=== PATIENT | male | born 1990 | race Caucasian/White ===

== ENCOUNTER 2017-02-06 00:37 | Emergency (ER) | payer BC ==
[2017-02-06 01:24] VITALS: BP 119/66
[2017-02-06] MEDS ORDERED: LORazepam 1 MG Tab PO ONE (01:27)
--- NOTE | 2017-02-06 01:34 | EDM.PDOC ---
ED HPI GENERAL MEDICAL PROBLEM - General Chief Complaint: Drug or Alcohol Abuse Stated Complaint: DRUG WITHDRAWALS Time Seen by Provider: 02/06/17 01:34 Source of Information: Reports: Patient - History of Present Illness INITIAL COMMENTS - FREE TEXT/NARRATIVE: HISTORY AND PHYSICAL: History of present illness: [] Patient reports withdrawing from heroin he does use or heroin daily smoking he has not used in 48 hours Is been through treatment in [place] and was on Suboxone for a week however is doing well and discontinued that thinking he would do well without it Currently complaining of runny nose muscle spasms restless legs No fever nausea vomiting chills sweats no chest pain shortness breath headache or palpitation denies urinary symptoms Review of systems: As per history of present illness and below otherwise all systems reviewed and negative. Past medical history: As per history of present illness and as reviewed below otherwise noncontributory. Surgical history: As per history of present illness and as reviewed below otherwise noncontributory. Social history: No reported history of drug or alcohol abuse. Family history: As per history of present illness and as reviewed below otherwise noncontributory. Physical exam: HEENT: Atraumatic, normocephalic, pupils reactive, negative for conjunctival pallor or scleral icterus, mucous membranes moist, throat clear, neck supple, nontender, trachea midline. Lungs: Clear to auscultation, breath sounds equal bilaterally, chest nontender. Heart: S1S2, regular, negative for clicks, rubs, or JVD. Abdomen: Soft, nondistended, nontender. Negative for masses or hepatosplenomegaly. Negative for costovertebral tenderness. Pelvis: Stable nontender. Genitourinary: Deferred. Rectal: Deferred. Extremities: Atraumatic, negative for cords or calf pain. Neurovascular unremarkable. Neuro: Awake, alert, oriented. Cranial nerves II through XII unremarkable. Cerebellum unremarkable. Motor and sensory unremarkable throughout. Exam nonfocal. 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 legs Pain Score (Numeric/FACES): 10 - Related Data Allergies Allergy/AdvReac Type Severity Reaction Status Date / Time No Known Allergies Allergy Verified 02/06/17 01:17 Home Meds: Home Meds . [No Known Home Meds] 02/06/17 [History] Past Medical History - Past Health History Medical/Surgical History: Denies Medical/Surgical History Social & Family History - Family History Family Medical History: Noncontributory - Tobacco Use Smoking Status *Q: Current Every Day Smoker Years of Tobacco use: 5 Packs/Tins Daily: 1 - Caffeine Use Caffeine Use: Reports: None - Recreational Drug Use Recreational Drug Use: Yes Drug Use in Last 12 Months: Yes Recreational Drug Type: Reports: Heroin Recreational Drug Use Frequency: Weekly ED ROS GENERAL - Review of Systems Review Of Systems: ROS reveals no pertinent complaints other than HPI. ED EXAM, GENERAL - Physical Exam Exam: See Below Course - Vital Signs Last Recorded V/S: Last Vital Signs Temp 36.6 C 02/06/17 01:18 Pulse 79 02/06/17 01:18 Resp 16 02/06/17 01:18 BP 119/66 02/06/17 01:18 Pulse Ox 98 02/06/17 01:18 - Orders/Labs/Meds Meds: Medications Discontinued Medications Generic Name Dose Route Start Last Admin Trade Name Freq PRN Reason Stop Dose Admin Lorazepam 1 mg 02/06/17 01:27 Ativan PO 02/06/17 01:28 ONETIME ONE Departure - Departure Time of Disposition: 01:36 Disposition: Home, Self-Care 01 Condition: fair Clinical Impression: Drug dependence, Opioid withdrawal - Discharge Information Forms: ED Department Discharge Additional Instructions: [place] [facility] in [facility] may be able to help this I provided the inpatient and outpatient treatment as well as have a Suboxone clinic [facility] also has a clinic similar to above phone number [phone] Return if symptoms persist or worsen Followup with primary care in 2 weeks sooner as needed [facility] - Primary Care [address] [place] [id number] The following information is given to patients seen in the emergency department who are being discharged to home. This information is to outline your options for follow-up care. We provide all patients seen in our emergency department with a follow-up referral. The need for follow-up, as well as the timing and circumstances, are variable depending upon the specifics of your emergency department visit. If you don't have a primary care physician on staff, we will provide you with a referral. We always advise you to contact your personal physician following an emergency department visit to inform them of the circumstance of the visit and for follow-up with them and/or the need for any referrals to a consulting specialist. The emergency department will also refer you to a specialist when appropriate. This referral assures that you have the opportunity for follow-up care with a specialist. All of these measure are taken in an effort to provide you with optimal care, which includes your follow-up. Under all circumstances we always encourage you to contact your private physician who remains a resource for coordinating your care. When calling for follow-up care, please make the office aware that this follow-up is from your recent emergency room visit. If for any reason you are refused follow-up, please contact the [facility] emergency department at and asked to speak to the emergency department charge nurse.
== END 2017-02-06 01:54 | disposition home or self-care (01) ==
LOC: MW.ED 00:37
DX: F11.23 Opioid dependence with withdrawal (principal); F17.210 Nicotine dependence, cigarettes, uncomplicated
CPT/HCPCS: 99283; A9270

== ENCOUNTER 2017-05-21 23:41 | Observation (INO) | payer BC ==
[2017-05-21] MEDS ORDERED: Ondansetron 4 MG/2 ML SDV IVPUSH ONE (23:50)
[2017-05-21] MEDS ORDERED: Ketorolac 30 MG/ML SDV IVPUSH ONE (23:50)
[2017-05-21] MEDS ORDERED: Sodium Chloride 0.9% 1,000 ML IV ONE (23:50)
--- NOTE | 2017-05-22 00:06 | EDM.PDOC ---
ED HPI GENERAL MEDICAL PROBLEM - General Chief Complaint: Flank Pain Stated Complaint: ABDOMNIAL PAIN Time Seen by Provider: 05/22/17 00:04 - History of Present Illness INITIAL COMMENTS - FREE TEXT/NARRATIVE: HISTORY AND PHYSICAL: History of present illness: Patient 27-year-old white male sensory concern of right flank pain is been over last several days worse tonight associated nausea denies vomiting denies fever chills denies trauma denies history urolithiasis or other concern he's had no prior surgeries Review of systems: As per history of present illness and below otherwise all systems reviewed and negative. Past medical history: As per history of present illness and as reviewed below otherwise noncontributory. Surgical history: As per history of present illness and as reviewed below otherwise noncontributory. Social history: No reported history of drug or alcohol abuse. Family history: As per history of present illness and as reviewed below otherwise noncontributory. Physical exam: HEENT: Atraumatic, normocephalic, pupils reactive, negative for conjunctival pallor or scleral icterus, mucous membranes moist, throat clear, neck supple, nontender, trachea midline. Lungs: Clear to auscultation, breath sounds equal bilaterally, chest nontender. Heart: S1S2, regular, negative for clicks, rubs, or JVD. Abdomen: Soft, nondistended, nontender. Negative for masses or hepatosplenomegaly. Right-sided costovertebral tenderness. Pelvis: Stable nontender. Genitourinary: Deferred. Rectal: Deferred. Extremities: Atraumatic, negative for cords or calf pain. Neurovascular unremarkable. Neuro: Awake, alert, oriented. Cranial nerves II through XII unremarkable. Cerebellum unremarkable. Motor and sensory unremarkable throughout. Exam nonfocal. Diagnostics: CBC CMP UA CT abdomen and pelvis Therapeutics: Normal saline 1 L bolus Toradol 30 mg IV Zofran 4 mg IV Impression: #1 acute right flank pain Definitive disposition and diagnosis as appropriate pending reevaluation and review of above. Right Flank Pain Score (Numeric/FACES): 10 - Related Data Allergies Allergy/AdvReac Type Severity Reaction Status Date / Time No Known Allergies Allergy Verified 02/06/17 01:17 Home Meds: Home Meds . [No Known Home Meds] 02/06/17 [History] Past Medical History - Past Health History Medical/Surgical History: Denies Medical/Surgical History Psychiatric History: Reports: Addiction - Infectious Disease History Infectious Disease History: Reports: Chicken Pox Social & Family History - Family History Family Medical History: Noncontributory - Tobacco Use Smoking Status *Q: Current Every Day Smoker Years of Tobacco use: 10 Packs/Tins Daily: 1 - Caffeine Use Caffeine Use: Reports: Soda Caffeine Use Comment: 4-5 daily - Recreational Drug Use Recreational Drug Use: Yes Drug Use in Last 12 Months: Yes Recreational Drug Type: Reports: Amphetamines (Speed), Heroin, Marijuana/Hashish Recreational Drug Use Frequency: Weekly ED ROS GENERAL - Review of Systems Review Of Systems: ROS reveals no pertinent complaints other than HPI. ED EXAM, GENERAL - Physical Exam Exam: See Below (See dictation) Course - Vital Signs Last Recorded V/S: Last Vital Signs Temp 36.4 C 05/21/17 23:43 Pulse 91 05/21/17 23:43 Resp 18 05/21/17 23:43 BP 137/70 05/21/17 23:43 Pulse Ox 96 05/21/17 23:43 - Orders/Labs/Meds Orders: Active Orders 24 hr Category Date Time Status Abdomen Pelvis wo Cont [CT] Stat Exams 05/21/17 23:50 Taken CULTURE BLOOD [BC] Stat Lab 05/22/17 01:38 Ordered CULTURE BLOOD [BC] Stat Lab 05/22/17 01:38 Ordered CULTURE URINE [RM] Stat Lab 05/22/17 01:39 Ordered Blood Culture x2 Reflex Set [OM.PC] Stat Oth 05/22/17 01:38 Ordered Labs: Laboratory Tests 05/22/17 05/22/17 05/22/17 Range/Units 00:04 00:04 00:43 WBC 15.64 H (4.0-11.0) K/uL RBC 4.79 (4.50-5.90) M/uL Hgb 14.1 (13.0-17.0) g/dL Hct 41.9 (38.0-50.0) % MCV 87.5 (80.0-98.0) fL MCH 29.4 (27.0-32.0) pg MCHC 33.7 (31.0-37.0) g/dL RDW Std Deviation 41.9 (28.0-62.0) fl RDW Coeff of Manuel 13 (11.0-15.0) % Plt Count 270 (150-400) K/uL MPV 9.60 (7.40-12.00) fL Neut % (Auto) 78.0 (48.0-80.0) % Lymph % (Auto) 11.0 L (16.0-40.0) % [place] % (Auto) 10.2 (0.0-15.0) % Eos % (Auto) 0.6 (0.0-7.0) % Baso % (Auto) 0.2 (0.0-1.5) % Neut # (Auto) 12.2 H (1.4-5.7) K/uL Lymph # (Auto) 1.7 (0.6-2.4) K/uL [place] # (Auto) 1.6 H (0.0-0.8) K/uL Eos # (Auto) 0.1 (0.0-0.7) K/uL Baso # (Auto) 0.0 (0.0-0.1) K/uL Nucleated RBC % 0.0 /100WBC Nucleated RBCs # 0 K/uL Sodium 140 (136-146) mmol/L Potassium 3.7 (3.5-5.1) mmol/L Chloride 107 (98-110) mmol/L Carbon Dioxide 23 (21-31) mmol/L BUN 22 (6.0-23.0) mg/dL Creatinine 3.0 H (0.6-1.5) mg/dL Est Cr Clr Drug Dosing 38.87 mL/min Estimated GFR (MDRD) 25.6 ml/min Glucose 120 H (60-110) mg/dL Calcium 9.0 (8.8-10.8) mg/dL Total Bilirubin 0.9 (0.1-1.5) mg/dL AST 20 (5-40) IU/L ALT 11 (8-54) IU/L Alkaline Phosphatase 58 (40-150) Total Protein 6.4 (6.0-8.0) g/dL Albumin 3.8 (3.5-5.0) g/dL Globulin 2.6 (2.0-3.5) g/dL Albumin/Globulin Ratio 1.5 (1.3-2.8) Urine Color YELLOW Urine Appearance CLEAR Urine pH 5.0 (5.0-8.0) Ur Specific [place] <= 1.005 (1.001-1.035) Urine Protein NEGATIVE (NEGATIVE) mg/dL Urine Glucose (UA) NEGATIVE (NEGATIVE) mg/dL Urine Ketones NEGATIVE (NEGATIVE) mg/dL Urine Occult Blood NEGATIVE (NEGATIVE) Urine Nitrite NEGATIVE (NEGATIVE) Urine Bilirubin NEGATIVE (NEGATIVE) Urine Urobilinogen 0.2 (<2.0) EU/dL Ur Leukocyte Esterase TRACE (NEGATIVE) Urine RBC 0-1 (0-2/HPF) Urine WBC 0-2 (0-5/HPF) Ur Epithelial Cells RARE (NONE-FEW) Urine Bacteria RARE (NEGATIVE) Meds: Medications Discontinued Medications Generic Name Dose Route Start Last Admin Trade Name Freq PRN Reason Stop Dose Admin Sodium Chloride 1,000 mls @ 999 mls/hr 05/21/17 23:50 05/22/17 00:08 Normal Saline IV 05/22/17 00:50 999 mls/hr .Bolus ONE Administration Ketorolac Tromethamine 30 mg 05/21/17 23:50 05/22/17 00:11 Toradol IVPUSH 05/21/17 23:51 30 mg ONETIME ONE Administration Ondansetron HCl 4 mg 05/21/17 23:50 05/22/17 00:11 Zofran IVPUSH 05/21/17 23:51 4 mg ONETIME ONE Administration Departure - Departure Time of Disposition: 01:41 Disposition: Refer to Observation Condition: Good Clinical Impression: Flank pain, Leukocytosis, Renal failure - Discharge Information Referrals: PCP,None [Primary Care Provider] - Forms: ED Department Discharge - My Orders Last 24 Hours: My Active Orders 05/21/17 23:50 Abdomen Pelvis wo Cont [CT] Stat 05/22/17 01:38 CULTURE BLOOD [BC] Stat CULTURE BLOOD [BC] Stat Blood Culture x2 Reflex Set [OM.PC] Stat 05/22/17 01:39 CULTURE URINE [RM] Stat - Assessment/Plan Last 24 Hours: My Active Orders 05/21/17 23:50 Abdomen Pelvis wo Cont [CT] Stat 05/22/17 01:38 CULTURE BLOOD [BC] Stat CULTURE BLOOD [BC] Stat Blood Culture x2 Reflex Set [OM.PC] Stat 05/22/17 01:39 CULTURE URINE [RM] Stat
[2017-05-22] MEDS ORDERED: Sodium Chloride 0.9% 1,000 ML IV ONE (01:52)
[2017-05-22] MEDS ORDERED: Sodium Chloride 0.9% 1,000 ML IV SCH ×2 (02:45→10:00)
[2017-05-22] MEDS ORDERED: Acetaminophen 325 MG Tab PO PRN (02:46)
[2017-05-22] MEDS ORDERED: Morphine 2 MG/ML Syringe IVPUSH PRN (02:46)
[2017-05-22] MEDS: cefTRIAXone 1 GM in Premix Bag 1 BAG IV SCH (03:02)
[2017-05-22] MEDS: oxyCODONE 5 MG Tab PO PRN ×4 (03:17→21:21)
--- NOTE | 2017-05-22 09:21 | PCM.HP ---
H&P History of Present Illness - General Date of Service: 05/22/17 Admit Problem/Dx: Admission Diagnosis/Problem Admission Diagnosis/Problem Flank pain Source of Information: Patient History Limitations: Reports: No Limitations - History of Present Illness Initial Comments - Free Text/Narative: The patient is a 27-year-old gentleman who is presented to the emergency room as he had right flank pain which woke him up suddenly in the middle the night. The patient has been healthy otherwise and he has no history of medical problems and he does not take any medications chronically. Patient reports that the pain is in his right kidney area and seemed to radiate around to the front of his right-sided abdomen. The patient has denied any nausea or vomiting. He's had no dysuria, frequency or hesitancy. No difficulty in initiating or maintaining urination. The patient says that the pain hurts when he tries to move or bends over. A CT scan obtained in the emergency department showed that the patient had stranding around his right kidney without otherwise significant abnormalities. UA was also negative. The patient had an elevation of his white blood cell count of 15,000 and he also had a BUN/creatinine of 22 and 3.0. The patient has been in his usual state of health. He has no other complaints today. Onset of Symptoms: Reports: Sudden Duration of Symptoms: Reports: Hour(s):, Improving Location: Reports: Back Quality: Reports: Stabbing, Throbbing Severity: Moderate Improves with: Reports: Rest Worsens with: Reports: Movement Associated Symptoms: Reports: No Other Symptoms Right Flank Pain Score (Numeric/FACES): 10 - Related Data Allergies/Adverse Reactions: Allergies Allergy/AdvReac Type Severity Reaction Status Date / Time No Known Allergies Allergy Verified 02/06/17 01:17 Home Medications: Home Meds . [No Known Home Meds] 02/06/17 [History] Past Medical History - Past Health History Medical/Surgical History: Denies Medical/Surgical History HEENT History: Reports: None Cardiovascular History: Reports: None Respiratory History: Reports: None Gastrointestinal History: Reports: None Genitourinary History: Reports: None Musculoskeletal History: Reports: None Neurological History: Reports: None Psychiatric History: Reports: Addiction Endocrine/Metabolic History: Reports: None Hematologic History: Reports: None Immunologic History: Reports: None - Infectious Disease History Infectious Disease History: Reports: Chicken Pox Social & Family History - Family History Family Medical History: Noncontributory HEENT: Reports: None Cardiac: Reports: None Respiratory: Reports: None GI: Reports: None : Reports: None OBGYN: Reports: None Musculoskeletal: Reports: None Neurological: Reports: None Psychiatric: Reports: None Endocrine/Metabolic: Reports: None - Tobacco Use Smoking Status *Q: Current Every Day Smoker Years of Tobacco use: 10 Packs/Tins Daily: 1 Second Hand Smoke Exposure: Yes - Caffeine Use Caffeine Use: Reports: Coffee, Energy Drinks, Soda Caffeine Use Comment: 4-5 daily - Alcohol Use Alcohol Use History: Yes - Recreational Drug Use Recreational Drug Use: No Drug Use in Last 12 Months: Yes Recreational Drug Type: Reports: Amphetamines (Speed), Heroin, Marijuana/Hashish Recreational Drug Use Frequency: Weekly H&P Review of Systems - Review of Systems: Review Of Systems: See Below General: Reports: No Symptoms HEENT: Reports: No Symptoms Pulmonary: Reports: No Symptoms Cardiovascular: Reports: No Symptoms Gastrointestinal: Reports: No Symptoms Genitourinary: Reports: No Symptoms Musculoskeletal: Reports: No Symptoms Skin: Reports: No Symptoms Psychiatric: Reports: No Symptoms Neurological: Reports: No Symptoms Hematologic/Lymphatic: Reports: No Symptoms Immunologic: Reports: No Symptoms Exam - Exam Exam: See Below - Vital Signs Vital Signs: Last Vital Signs Temp 37.2 C 05/22/17 02:14 Pulse 73 05/22/17 02:14 Resp 20 05/22/17 02:14 BP 113/71 05/22/17 02:14 Pulse Ox 96 05/22/17 02:14 Weight: 69.6 kg - Exam Quality Assessment: No: Supplemental Oxygen General: Alert, Oriented, Cooperative. No: Mild Distress HEENT: Conjunctiva Clear. No: Mucosa Moist & [place] (Dry) Neck: Supple, Trachea Midline Lungs: Clear to Auscultation, Normal Respiratory Effort Cardiovascular: Regular Rate, Regular Rhythm GI/Abdominal Exam: Normal Bowel Sounds, Soft Back Exam: Normal Inspection Extremities: Normal Inspection, No Pedal Edema Skin: Warm, Dry Neurological: Cranial Nerves Intact Neuro Extensive - Mental Status: Alert, Oriented x3 - Patient Data Lab Results Last 24 hrs: Laboratory Results - last 24 hr 05/22/17 05/22/17 05/22/17 Range/Units 08:04 08:04 08:04 WBC 11.04 H (4.0-11.0) K/uL RBC 4.74 (4.50-5.90) M/uL Hgb 14.0 (13.0-17.0) g/dL Hct 42.0 (38.0-50.0) % MCV 88.6 (80.0-98.0) fL MCH 29.5 (27.0-32.0) pg MCHC 33.3 (31.0-37.0) g/dL RDW Std Deviation 43.0 (28.0-62.0) fl RDW Coeff of Manuel 13 (11.0-15.0) % Plt Count 244 (150-400) K/uL MPV 9.40 (7.40-12.00) fL Neut % (Auto) 67.2 (48.0-80.0) % Lymph % (Auto) 19.3 (16.0-40.0) % [place] % (Auto) 12.0 (0.0-15.0) % Eos % (Auto) 1.2 (0.0-7.0) % Baso % (Auto) 0.3 (0.0-1.5) % Neut # (Auto) 7.4 H (1.4-5.7) K/uL Lymph # (Auto) 2.1 (0.6-2.4) K/uL [place] # (Auto) 1.3 H (0.0-0.8) K/uL Eos # (Auto) 0.1 (0.0-0.7) K/uL Baso # (Auto) 0.0 (0.0-0.1) K/uL Nucleated RBC % 0.0 /100WBC Nucleated RBCs # 0 K/uL Lactate 0.5 (0.20-2.00) mmol/L Sodium 140 (136-146) mmol/L Potassium 4.1 (3.5-5.1) mmol/L Chloride 111 H (98-110) mmol/L Carbon Dioxide 23 (21-31) mmol/L BUN 21 (6.0-23.0) mg/dL Creatinine 2.7 H (0.6-1.5) mg/dL Est Cr Clr Drug Dosing 41.17 mL/min Estimated GFR (MDRD) 28.9 ml/min Glucose 79 (60-110) mg/dL Calcium 8.0 L (8.8-10.8) mg/dL Result Diagrams: 05/22/17 08:04 05/22/17 08:04 *Q Meaningful Use (ADM) - VTE *Q VTE Criteria *Q: - Stroke *Q Stroke Criteria *Q: - AMI *Q AMI Criteria *Q: - Problem List (1) Acute renal insufficiency SNOMED Code(s): 249275392 ICD Code: N28.9 - DISORDER OF KIDNEY AND URETER, UNSPECIFIED Status: Acute Priority: High Current Visit: Yes (2) Flank pain SNOMED Code(s): 029782384 ICD Code: R10.9 - UNSPECIFIED ABDOMINAL PAIN Status: Acute Priority: High Current Visit: Yes (3) Leukocytosis SNOMED Code(s): 475839143, 325911498 ICD Code: D72.829 - ELEVATED WHITE BLOOD CELL COUNT, UNSPECIFIED Status: Acute Current Visit: Yes Qualifiers: Leukocytosis type: unspecified Qualified Code(s): D72.829 - Elevated white blood cell count, unspecified Problem List Initiated/Reviewed/Updated: Yes Orders Last 24hrs: Active Orders 24 hr Category Date Time Status Patient Status [ADT] Routine ADT 05/22/17 09:18 Ordered Ambulate [RC] PER UNIT ROUTINE Care 05/22/17 09:20 Ordered Oxygen Therapy [RC] PRN Care 05/22/17 09:18 Ordered VTE/DVT Education [RC] PER UNIT ROUTINE Care 05/22/17 09:18 Ordered Vital Signs [RC] Q4H Care 05/22/17 09:18 Ordered Regular Diet [DIET] Diet 05/22/17 Breakfast Active Acetaminophen [Tylenol] Med 05/22/17 02:46 Active 650 mg PO Q4H PRN Morphine Med 05/22/17 02:46 Active 2 mg IVPUSH Q2H PRN Sodium Chloride 0.9% [Normal Saline] 1,000 ml Med 05/22/17 01:52 Active IV .Bolus Sodium Chloride 0.9% [Normal Saline] 1,000 ml Med 05/22/17 02:45 Active IV ASDIRECTED cefTRIAXone [Rocephin in Dextrose,Iso-Osm 1 GM/50 ML] 1 Med 05/22/17 03:00 Active gm Premix Bag 1 bag IV Q24H oxyCODONE Med 05/22/17 02:46 Active 5 mg PO Q4H PRN Resuscitation Status Routine Resus Stat 05/22/17 09:18 Ordered Medication Orders Acetaminophen (Tylenol) 650 mg PO Q4H PRN PRN Reason: Pain (mild 1-3) Sodium Chloride (Normal Saline) 1,000 mls @ 125 mls/hr IV .Bolus ONE Stop: 05/22/17 09:51 Last Infusion: 05/22/17 02:56 Dose: 125 mls/hr Admin: 05/22/17 01:57 Dose: 125 mls/hr Ceftriaxone Sodium/Dextrose 1 (gm/ Premix) 50 mls @ 100 mls/hr IV Q24H ASHWIN Last Infusion: 05/22/17 03:32 Dose: 100 mls/hr Admin: 05/22/17 03:02 Dose: 100 mls/hr Sodium Chloride (Normal Saline) 1,000 mls @ 125 mls/hr IV ASDIRECTED [facility] Last Admin: 05/22/17 02:57 Dose: 75 mls/hr Morphine Sulfate (Morphine) 2 mg IVPUSH Q2H PRN PRN Reason: Pain (severe 7-10) Oxycodone HCl (Oxycodone) 5 mg PO Q4H PRN PRN Reason: Pain (moderate 4-6) Last Admin: 05/22/17 03:17 Dose: 5 mg Assessment/Plan Comment:: The patient is a 27-year-old gentleman who is presented with a CT scan that did show some stranding thought likely to be secondary to pyelonephritis. The patient's urinalysis was essentially normal and this may represent stranding possibly secondary to a duodenitis or other retroperitoneal processes. No abscess was discovered. The patient is very dry and he admits to not drinking much in way of water. The patient will be admitted as an observation he'll be fluid hydrated, pain controlled and he will also be placed on Rocephin 1 g every 24 hours. If the patient has exhibited sufficient improvement over the next 12 hours and his renal function has normalized he'll likely be appropriate for discharge home. The patient will have a basic metabolic panel ordered at 1700 tonight. If this is normal I'll likely discharge patient home with recommendation for him to follow-up with primary care physician.
--- NOTE | 2017-05-22 10:22 | CT ---
EXAM DATE: 05/22/17 PATIENT'S AGE: 27 Patient: SHEELA PERERA Facility: [place], [place] Site . Site : 1992 Study: CT Abdomen/Pelvis wo cont [id number]/14/2017 12:29:38 AM Ordering Physician: Doctor Huertas Final Report: INDICATION: right flank pain for 2 days TECHNIQUE: CT abdomen and pelvis without contrast. COMPARISON: None FINDINGS: Lower chest: Unremarkable. Liver: Unremarkable. Spleen: Unremarkable. Pancreas: Unremarkable. Gallbladder and bile ducts: Partially contracted. Kidneys: Nonspecific perinephric stranding bilaterally. No kidney or ureteral stones and no hydronephrosis. Adrenal glands: Unremarkable. GI tract: Scattered colonic diverticulosis without acute diverticulitis. Appendix is normal. Vascular structures: Unremarkable. Lymph nodes: Unremarkable. Miscellaneous: Unremarkable. No free air or significant free fluid. Pelvic Organs: Unremarkable. Bones: Unremarkable for age. IMPRESSION: Mild nonspecific perinephric stranding bilaterally. Please correlate for the possibility of an infectious etiology. Otherwise, no acute abnormality. Dictated by Riley Mims MD @ 05/22/2017 12:36:15 AM Dictated by: Riley Mims MD @ 05/22/2017 00:36:40 (Electronic Signature) Report Signed by Proxy. [facility]
--- NOTE | 2017-05-22 18:08 | PCM.SN ---
- Free Text/Narrative Note: Basic metabolic panel was ordered secondary to the patient's decreased EGFR and if this had remained normal the patient would be considered appropriate for discharge. The patient's BUN/creatinine creatinine had improved to 20 and 2.4. This represents a minimal improvement. I will maintain the patient on his Rocephin for now secondary to the stranding noted on the CT scan of his abdomen and pelvis. The patient may be appropriate for discharge after his white cell count has normalized and his pain is much better controlled. The patient also will be continued on fluids in order to improve his dehydration and help to improve his renal function.
[2017-05-22] MEDS: Sodium Chloride 0.9% 1,000 ML IV SCH (21:27)
[2017-05-22] MEDS: Ondansetron 4 MG/2 ML SDV IVPUSH PRN (21:58)
[2017-05-23] MEDS: cefTRIAXone 1 GM in Premix Bag 1 BAG IV SCH (03:31)
--- NOTE | 2017-05-23 10:17 | PCM.PN ---
- General Info Date of Service: 05/23/17 Admission Dx/Problem (Free Text): Admission Diagnosis/Problem Admission Diagnosis/Problem Flank pain Subjective Update: Reports pain is about the same, no changes, continues to be nauseated, unable to eat unless he gets Zofran before hand. Having LLQ pain as well, no diarrhea. No joint pain or vision concerns. No chest pain or SOB. significant other in bed next to him. Nursing reports they are both sleeping a lot . Functional Status: Reports: Pain Controlled, Ambulating, Urinating. Denies: Tolerating Diet - Review of Systems General: Reports: No Symptoms. Denies: Fever, Fatigue HEENT: Reports: No Symptoms. Denies: Ear Pain, Eye Pain, Headaches, Sore Throat , Rhinitis, Visual Changes Pulmonary: Reports: No Symptoms. Denies: Shortness of Breath, Cough, Sputum Cardiovascular: Reports: No Symptoms. Denies: Chest Pain, Palpitations, Edema Gastrointestinal: Reports: Abdominal Pain (LLQ), Flatus, Nausea. Denies: Diarrhea, Vomiting Genitourinary: Reports: Flank Pain. Denies: Dysuria, Frequency, Burning, Urgency Musculoskeletal: Reports: No Symptoms. Denies: Neck Pain Skin: Reports: No Symptoms Neurological: Reports: No Symptoms Psychiatric: Reports: No Symptoms - Patient Data Vitals - Most Recent: Last Vital Signs Temp 98.7 F 05/23/17 08:00 Pulse 61 05/23/17 08:00 Resp 18 05/23/17 08:00 BP 128/77 05/23/17 08:00 Pulse Ox 96 05/23/17 08:00 Weight - Most Recent: 69.6 kg I&O - Last 24 Hours: Intake & Output 05/22/17 05/23/17 05/23/17 22:59 06:59 14:59 Intake Total 2576 1999 Output Total 950 Balance 1626 1999 Lab Results Last 24 Hours: Laboratory Results - last 24 hr 05/22/17 05/23/17 05/23/17 Range/Units 17:03 05:00 05:00 WBC 10.60 (4.0-11.0) K/uL RBC 4.65 (4.50-5.90) M/uL Hgb 13.7 (13.0-17.0) g/dL Hct 41.7 (38.0-50.0) % MCV 89.7 (80.0-98.0) fL MCH 29.5 (27.0-32.0) pg MCHC 32.9 (31.0-37.0) g/dL RDW Std Deviation 43.1 (28.0-62.0) fl RDW Coeff of Manuel 13 (11.0-15.0) % Plt Count 261 (150-400) K/uL MPV 10.00 (7.40-12.00) fL Neut % (Auto) 71.3 (48.0-80.0) % Lymph % (Auto) 17.5 (16.0-40.0) % [place] % (Auto) 9.5 (0.0-15.0) % Eos % (Auto) 1.4 (0.0-7.0) % Baso % (Auto) 0.3 (0.0-1.5) % Neut # (Auto) 7.6 H (1.4-5.7) K/uL Lymph # (Auto) 1.9 (0.6-2.4) K/uL [place] # (Auto) 1.0 H (0.0-0.8) K/uL Eos # (Auto) 0.2 (0.0-0.7) K/uL Baso # (Auto) 0.0 (0.0-0.1) K/uL Nucleated RBC % 0.0 /100WBC Nucleated RBCs # 0 K/uL Sodium 141 141 (136-146) mmol/L Potassium 4.2 4.7 (3.5-5.1) mmol/L Chloride 110 110 (98-110) mmol/L Carbon Dioxide 25 26 (21-31) mmol/L BUN 20 16 (6.0-23.0) mg/dL Creatinine 2.4 H 2.0 H (0.6-1.5) mg/dL Est Cr Clr Drug Dosing 46.32 55.58 mL/min Estimated GFR (MDRD) 33.2 40.9 ml/min Glucose 138 H 84 (60-110) mg/dL Calcium 8.5 L 8.7 L (8.8-10.8) mg/dL Phosphorus 3.6 (2.4-4.7) mg/dL Magnesium 1.5 (1.5-2.3) mEq/L [place] Results Last 24 Hours: Microbiology 05/22/17 01:50 Aerobic Blood Culture - Preliminary Blood - Venous - Lab Draw NO GROWTH AFTER 1 DAY Anaerobic Blood Culture - Preliminary NO GROWTH AFTER 1 DAY 05/22/17 01:50 Aerobic Blood Culture - Preliminary Blood - Venous NO GROWTH AFTER 1 DAY Anaerobic Blood Culture - Preliminary NO GROWTH AFTER 1 DAY Med Orders - Current: Current Medications Acetaminophen (Tylenol) 650 mg PO Q4H PRN PRN Reason: Pain (mild 1-3) Last Admin: 05/22/17 21:58 Dose: 650 mg Ceftriaxone Sodium/Dextrose 1 (gm/ Premix) 50 mls @ 100 mls/hr IV Q24H [facility] Last Admin: 05/23/17 03:31 Dose: Not Given Sodium Chloride (Normal Saline) 1,000 mls @ 125 mls/hr IV ASDIRECTED [facility] Last Admin: 05/22/17 21:27 Dose: 125 mls/hr Morphine Sulfate (Morphine) 2 mg IVPUSH Q2H PRN PRN Reason: Pain (severe 7-10) Ondansetron HCl (Zofran) 4 mg IVPUSH Q4H PRN PRN Reason: Nausea/Vomiting Last Admin: 05/22/17 21:58 Dose: 4 mg Oxycodone HCl (Oxycodone) 5 mg PO Q4H PRN PRN Reason: Pain (moderate 4-6) Last Admin: 05/22/17 21:21 Dose: 5 mg Discontinued Medications Sodium Chloride (Normal Saline) 1,000 mls @ 999 mls/hr IV .Bolus ONE Stop: 05/22/17 00:50 Last Admin: 05/22/17 00:08 Dose: 999 mls/hr Sodium Chloride (Normal Saline) 1,000 mls @ 125 mls/hr IV .Bolus ONE Stop: 05/22/17 09:51 Last Infusion: 05/22/17 02:56 Dose: 125 mls/hr Sodium Chloride (Normal Saline) 1,000 mls @ 125 mls/hr IV ASDIRECTED [facility] Last Admin: 05/22/17 02:57 Dose: 75 mls/hr Sodium Chloride (Normal Saline) 1,000 mls @ 75 mls/hr IV ASDIRECTED [facility] Last Admin: 05/22/17 15:51 Dose: 75 mls/hr Ketorolac Tromethamine (Toradol) 30 mg IVPUSH ONETIME ONE Stop: 05/21/17 23:51 Last Admin: 05/22/17 00:11 Dose: 30 mg Ondansetron HCl (Zofran) 4 mg IVPUSH ONETIME ONE Stop: 05/21/17 23:51 Last Admin: 05/22/17 00:11 Dose: 4 mg - Exam General: Alert, Oriented, Cooperative, No Acute Distress Neck: Supple Lungs: Clear to Auscultation, Normal Respiratory Effort Cardiovascular: Regular Rate, Regular Rhythm GI/Abdominal Exam: Normal Bowel Sounds, Soft, No Distention, No Mass, Tender ( LLQ) Back Exam: Normal Inspection, Full Range of Motion, CVA Tenderness (L), CVA Tenderness (R) Extremities: Normal Inspection, Normal Range of Motion, Non-Tender, No Pedal Edema, Normal Capillary Refill Neurological: No New Focal Deficit Psy/Mental Status: Alert, Normal Affect, Normal Mood - Problem List & Annotations (1) Acute renal insufficiency SNOMED Code(s): 805425597 Code(s): N28.9 - DISORDER OF KIDNEY AND URETER, UNSPECIFIED Status: Acute Priority: High Current Visit: Yes (2) Flank pain SNOMED Code(s): 284587489 Code(s): R10.9 - UNSPECIFIED ABDOMINAL PAIN Status: Acute Priority: High Current Visit: Yes (3) Leukocytosis SNOMED Code(s): 803271838, 960745893 Code(s): D72.829 - ELEVATED WHITE BLOOD CELL COUNT, UNSPECIFIED Status: Acute Current Visit: Yes Qualifiers: Leukocytosis type: unspecified Qualified Code(s): D72.829 - Elevated white blood cell count, unspecified - Problem List Review Problem List Initiated/Reviewed/Updated: Yes - My Orders Last 24 Hours: My Active Orders 05/23/17 Lunch NPO [Nothing Per Oral Diet] [DIET] - Plan Plan:: This 27 year old male admitted with flank pain, leukocytosis and CHELSEY. 1. Flank pain: Abd CT revealed non-specific perinephric standing bilaterally, scattered diverticulosis noted without diverticulitis. Pain continues, reports "no change". Nausea continues, will place on bowel rest until pain improves as well as nausea. Ok to have ice chips and sips of water with pills. 2. Leukocytosis: Improving, 10,00 today. BC negative. UA negative. Will stop Rocephin and start Cipro and Flagyl to cover any possible diverticulitis vs pyelonephritis. 3. CHELSEY; Cr improving with hydration, 2.0 today. Will continue IVFs and monitor in am. VTE prophylaxis: SCDs and ambulation.
[2017-05-23] MEDS: oxyCODONE 5 MG Tab PO PRN ×3 (10:44→22:02)
[2017-05-23] MEDS: Sodium Chloride 0.9% 1,000 ML IV SCH ×2 (10:45→21:51)
[2017-05-23] MEDS: metroNIDAZOLE/Normal Saline 500 MG in Premix Bag 1 BAG IV SCH ×4 (13:08→23:52)
[2017-05-23] MEDS: Ciprofloxacin in D5W 400 MG in Premix Bag 1 BAG IV SCH ×2 (13:08)
[2017-05-23] MEDS: Ondansetron 4 MG/2 ML SDV IVPUSH PRN (13:13)
[2017-05-24] MEDS: Ciprofloxacin in D5W 400 MG in Premix Bag 1 BAG IV SCH ×4 (01:19→13:38)
[2017-05-24] MEDS: oxyCODONE 5 MG Tab PO PRN ×4 (03:44→22:34)
[2017-05-24] MEDS: metroNIDAZOLE/Normal Saline 500 MG in Premix Bag 1 BAG IV SCH ×5 (05:46→23:35)
[2017-05-24] MEDS: Sodium Chloride 0.9% 1,000 ML IV SCH ×2 (10:03→21:55)
[2017-05-24] MEDS ORDERED: Magnesium Sulfate/Water 2 GM in Premix Bag 1 BAG IV ONE (14:21)
--- NOTE | 2017-05-24 17:23 | PCM.PN ---
- General Info Date of Service: 05/24/17 Subjective Update: he is hungry. Pain is better. - Patient Data Vitals - Most Recent: Last Vital Signs Temp 97.7 F 05/24/17 12:00 Pulse 48 L 05/24/17 12:00 Resp 18 05/24/17 12:00 BP 116/65 05/24/17 12:00 Pulse Ox 96 05/24/17 12:00 Weight - Most Recent: 69.6 kg I&O - Last 24 Hours: Intake & Output 05/24/17 05/24/17 05/24/17 06:59 14:59 22:59 Intake Total 1330 Balance 1330 Lab Results Last 24 Hours: Laboratory Results - last 24 hr 05/24/17 Range/Units 06:08 Sodium 139 (136-146) mmol/L Potassium 4.0 (3.5-5.1) mmol/L Chloride 108 (98-110) mmol/L Carbon Dioxide 24 (21-31) mmol/L BUN 15 (6.0-23.0) mg/dL Creatinine 1.5 (0.6-1.5) mg/dL Est Cr Clr Drug Dosing 74.11 mL/min Estimated GFR (MDRD) 57.0 ml/min Glucose 74 (60-110) mg/dL Calcium 8.3 L (8.8-10.8) mg/dL Phosphorus 3.2 (2.4-4.7) mg/dL Magnesium 1.4 L (1.5-2.3) mEq/L [place] Results Last 24 Hours: Microbiology 05/22/17 01:50 Aerobic Blood Culture - Preliminary Blood - Venous - Lab Draw NO GROWTH AFTER 2 DAYS Anaerobic Blood Culture - Preliminary NO GROWTH AFTER 2 DAYS 05/22/17 01:50 Aerobic Blood Culture - Preliminary Blood - Venous NO GROWTH AFTER 2 DAYS Anaerobic Blood Culture - Preliminary NO GROWTH AFTER 2 DAYS Med Orders - Current: Current Medications Acetaminophen (Tylenol) 650 mg PO Q4H PRN PRN Reason: Pain (mild 1-3) Last Admin: 05/22/17 21:58 Dose: 650 mg Sodium Chloride (Normal Saline) 1,000 mls @ 125 mls/hr IV ASDIRECTED [facility] Last Admin: 05/24/17 10:03 Dose: 125 mls/hr Ciprofloxacin/Dextrose 400 mg/ (Premix) 200 mls @ 200 mls/hr IV Q12H [facility] Last Admin: 05/24/17 13:38 Dose: 200 mls/hr Metronidazole 500 mg/ Premix 100 mls @ 100 mls/hr IV QID [facility] Last Admin: 05/24/17 12:05 Dose: 100 mls/hr Morphine Sulfate (Morphine) 2 mg IVPUSH Q2H PRN PRN Reason: Pain (severe 7-10) Ondansetron HCl (Zofran) 4 mg IVPUSH Q4H PRN PRN Reason: Nausea/Vomiting Last Admin: 05/23/17 13:13 Dose: 4 mg Oxycodone HCl (Oxycodone) 5 mg PO Q4H PRN PRN Reason: Pain (moderate 4-6) Last Admin: 05/24/17 13:09 Dose: 5 mg Discontinued Medications Sodium Chloride (Normal Saline) 1,000 mls @ 999 mls/hr IV .Bolus ONE Stop: 05/22/17 00:50 Last Admin: 05/22/17 00:08 Dose: 999 mls/hr Sodium Chloride (Normal Saline) 1,000 mls @ 125 mls/hr IV .Bolus ONE Stop: 05/22/17 09:51 Last Infusion: 05/22/17 02:56 Dose: 125 mls/hr Ceftriaxone Sodium/Dextrose 1 (gm/ Premix) 50 mls @ 100 mls/hr IV Q24H [facility] Last Admin: 05/23/17 03:31 Dose: Not Given Sodium Chloride (Normal Saline) 1,000 mls @ 125 mls/hr IV ASDIRECTED [facility] Last Admin: 05/22/17 02:57 Dose: 75 mls/hr Sodium Chloride (Normal Saline) 1,000 mls @ 75 mls/hr IV ASDIRECTED [facility] Last Admin: 05/22/17 15:51 Dose: 75 mls/hr Magnesium Sulfate 2 gm/ Premix 50 mls @ 50 mls/hr IV ONETIME ONE Stop: 05/24/17 15:20 Ketorolac Tromethamine (Toradol) 30 mg IVPUSH ONETIME ONE Stop: 05/21/17 23:51 Last Admin: 05/22/17 00:11 Dose: 30 mg Ondansetron HCl (Zofran) 4 mg IVPUSH ONETIME ONE Stop: 05/21/17 23:51 Last Admin: 05/22/17 00:11 Dose: 4 mg - Exam General: Alert, Oriented Lungs: Normal Respiratory Effort GI/Abdominal Exam: Non-Tender Psy/Mental Status: Alert, Normal Affect Physical Findings Comments:: no cvat - Problem List & Annotations (1) Acute renal insufficiency SNOMED Code(s): 847026755 Code(s): N28.9 - DISORDER OF KIDNEY AND URETER, UNSPECIFIED Status: Acute Priority: High Current Visit: Yes (2) Flank pain SNOMED Code(s): 186926471 Code(s): R10.9 - UNSPECIFIED ABDOMINAL PAIN Status: Acute Priority: High Current Visit: Yes (3) Leukocytosis SNOMED Code(s): 808330363, 291339047 Code(s): D72.829 - ELEVATED WHITE BLOOD CELL COUNT, UNSPECIFIED Status: Acute Current Visit: Yes Qualifiers: Leukocytosis type: unspecified Qualified Code(s): D72.829 - Elevated white blood cell count, unspecified - Problem List Review Problem List Initiated/Reviewed/Updated: Yes - My Orders Last 24 Hours: My Active Orders 05/24/17 Dinner Regular Diet [DIET] 05/25/17 05:11 MAGNESIUM [CHEM] AM 05/26/17 05:11 MAGNESIUM [CHEM] AM 05/27/17 05:11 MAGNESIUM [CHEM] AM - Plan Plan:: This 27 year old male admitted with flank pain, leukocytosis and CHELSEY. 1. Flank pain: Abd CT revealed non-specific perinephric standing bilaterally, scattered diverticulosis noted without diverticulitis. Pain continues, reports "no change". Nausea continues, will place on bowel rest until pain improves as well as nausea. Ok to have ice chips and sips of water with pills. 2. Leukocytosis: Improving, 10,00 today. BC negative. UA negative. Will stop Rocephin and start Cipro and Flagyl to cover any possible diverticulitis vs pyelonephritis. 3. CHELSEY; Cr improving with hydration, 2.0 today. Will continue IVFs and monitor in am. VTE prophylaxis: SCDs and ambulation. 05/24/2017 I suspect that he had some type of acute renal insult that is now improving. He may have had pyelonephritis althought normal urine is not c/w this. possible discharge in am Davina Palacios MD
[2017-05-24] MEDS ORDERED: Magnesium Sulfate/Water 50 ML ONE (18:30)
[2017-05-25] MEDS: Ciprofloxacin in D5W 400 MG in Premix Bag 1 BAG IV SCH ×2 (00:42)
[2017-05-25] MEDS: metroNIDAZOLE/Normal Saline 500 MG in Premix Bag 1 BAG IV SCH (05:17)
[2017-05-25] MEDS: Sodium Chloride 0.9% 1,000 ML IV SCH (07:47)
--- NOTE | 2017-05-25 11:52 | PCM.DCSUM1 ---
Discharge Summary - Hospital Course Brief History: he was admitted for flank pain and acute renal failure with a serum creatinine of 3.0. - Discharge Data Discharge Date: 05/25/17 Discharge Disposition: Home, Self-Care 01 Condition: Fair - Discharge Diagnosis/Problem(s) (1) Acute renal insufficiency SNOMED Code(s): 201335409 ICD Code: N28.9 - DISORDER OF KIDNEY AND URETER, UNSPECIFIED Status: Acute Priority: High Current Visit: Yes (2) Flank pain SNOMED Code(s): 216057272 ICD Code: R10.9 - UNSPECIFIED ABDOMINAL PAIN Status: Acute Priority: High Current Visit: Yes (3) Leukocytosis SNOMED Code(s): 048632094, 585281933 ICD Code: D72.829 - ELEVATED WHITE BLOOD CELL COUNT, UNSPECIFIED Status: Acute Current Visit: Yes Qualifiers: Leukocytosis type: unspecified Qualified Code(s): D72.829 - Elevated white blood cell count, unspecified - Patient Summary/Data Hospital Course: He was given IVF hydration, analgesics and antiemetics. He was started on antibiotics presumptively. His CT scan of the abdomen and pelvis showed colonic diverticulosis without diverticulitis as well as non specific perinephric stranding. He gradually improved. He is asymptomatic at discharge and his serum creatinine is 1.5 . During the hospitalization he stated that he had been living in a car for about a month and had been drinking almost no water, only soft drinks. He states that his sleeping and eating patterns were very irregular. I recommended that he follow up within a week to be certain that his renal function was still improving. he is normotensive at discharge. - Discharge Plan Home Medications: Home Meds . [No Known Home Meds] 02/06/17 [History] Referrals: Grayson Garcia DO [Physician] - 06/03/17 11:00 am - Patient Data Vitals - Most Recent: Last Vital Signs Temp 97.7 F 05/25/17 08:00 Pulse 76 05/25/17 08:00 Resp 16 05/25/17 08:00 BP 102/63 05/25/17 08:00 Pulse Ox 97 05/25/17 08:00 Weight - Most Recent: 69.6 kg I&O - Last 24 hours: Intake & Output 05/24/17 05/25/17 05/25/17 22:59 06:59 14:59 Intake Total 2069 780 1400 Balance 2069 780 1400 Lab Results - Last 24 hrs: Laboratory Results - last 24 hr 05/25/17 05/25/17 Range/Units 06:30 06:30 WBC 6.87 (4.0-11.0) K/uL RBC 4.72 (4.50-5.90) M/uL Hgb 13.9 (13.0-17.0) g/dL Hct 41.1 (38.0-50.0) % MCV 87.1 (80.0-98.0) fL MCH 29.4 (27.0-32.0) pg MCHC 33.8 (31.0-37.0) g/dL RDW Std Deviation 41.0 (28.0-62.0) fl RDW Coeff of Manuel 13 (11.0-15.0) % Plt Count 240 (150-400) K/uL MPV 9.30 (7.40-12.00) fL Neut % (Auto) 58.1 (48.0-80.0) % Lymph % (Auto) 28.4 (16.0-40.0) % [place] % (Auto) 11.2 (0.0-15.0) % Eos % (Auto) 1.9 (0.0-7.0) % Baso % (Auto) 0.4 (0.0-1.5) % Neut # (Auto) 4.0 (1.4-5.7) K/uL Lymph # (Auto) 2.0 (0.6-2.4) K/uL [place] # (Auto) 0.8 (0.0-0.8) K/uL Eos # (Auto) 0.1 (0.0-0.7) K/uL Baso # (Auto) 0.0 (0.0-0.1) K/uL Nucleated RBC % 0.0 /100WBC Nucleated RBCs # 0 K/uL Sodium 140 (136-146) mmol/L Potassium 4.1 (3.5-5.1) mmol/L Chloride 106 (98-110) mmol/L Carbon Dioxide 28 (21-31) mmol/L BUN 14 (6.0-23.0) mg/dL Creatinine 1.5 (0.6-1.5) mg/dL Est Cr Clr Drug Dosing 74.11 mL/min Estimated GFR (MDRD) 57.0 ml/min Glucose 113 H (60-110) mg/dL Calcium 8.4 L (8.8-10.8) mg/dL Magnesium 1.5 (1.5-2.3) mEq/L [place] Results - Last 24 hrs: Microbiology 05/22/17 01:50 Aerobic Blood Culture - Preliminary Blood - Venous - Lab Draw NO GROWTH AFTER 3 DAYS Anaerobic Blood Culture - Preliminary NO GROWTH AFTER 3 DAYS 05/22/17 01:50 Aerobic Blood Culture - Preliminary Blood - Venous NO GROWTH AFTER 3 DAYS Anaerobic Blood Culture - Preliminary NO GROWTH AFTER 3 DAYS Med Orders - Current: Current Medications Acetaminophen (Tylenol) 650 mg PO Q4H PRN PRN Reason: Pain (mild 1-3) Last Admin: 05/22/17 21:58 Dose: 650 mg Sodium Chloride (Normal Saline) 1,000 mls @ 125 mls/hr IV ASDIRECTED [facility] Last Admin: 05/25/17 07:47 Dose: 125 mls/hr Ciprofloxacin/Dextrose 400 mg/ (Premix) 200 mls @ 200 mls/hr IV Q12H [facility] Last Admin: 05/25/17 00:42 Dose: 200 mls/hr Metronidazole 500 mg/ Premix 100 mls @ 100 mls/hr IV QID [facility] Last Admin: 05/25/17 05:17 Dose: 100 mls/hr Morphine Sulfate (Morphine) 2 mg IVPUSH Q2H PRN PRN Reason: Pain (severe 7-10) Ondansetron HCl (Zofran) 4 mg IVPUSH Q4H PRN PRN Reason: Nausea/Vomiting Last Admin: 05/23/17 13:13 Dose: 4 mg Oxycodone HCl (Oxycodone) 5 mg PO Q4H PRN PRN Reason: Pain (moderate 4-6) Last Admin: 05/24/17 22:34 Dose: 5 mg Discontinued Medications Sodium Chloride (Normal Saline) 1,000 mls @ 999 mls/hr IV .Bolus ONE Stop: 05/22/17 00:50 Last Admin: 05/22/17 00:08 Dose: 999 mls/hr Sodium Chloride (Normal Saline) 1,000 mls @ 125 mls/hr IV .Bolus ONE Stop: 05/22/17 09:51 Last Infusion: 05/22/17 02:56 Dose: 125 mls/hr Ceftriaxone Sodium/Dextrose 1 (gm/ Premix) 50 mls @ 100 mls/hr IV Q24H [facility] Last Admin: 05/23/17 03:31 Dose: Not Given Sodium Chloride (Normal Saline) 1,000 mls @ 125 mls/hr IV ASDIRECTED [facility] Last Admin: 05/22/17 02:57 Dose: 75 mls/hr Sodium Chloride (Normal Saline) 1,000 mls @ 75 mls/hr IV ASDIRECTED [facility] Last Admin: 05/22/17 15:51 Dose: 75 mls/hr Magnesium Sulfate 2 gm/ Premix 50 mls @ 50 mls/hr IV ONETIME ONE Stop: 05/24/17 15:20 Last Admin: 05/24/17 18:34 Dose: 50 mls/hr Magnesium Sulfate (Magnesium Sulfate 2 Gm In Water 50 Ml) Confirm Administered Dose 50 mls @ as directed .ROUTE .STK-MED ONE Stop: 05/24/17 18:31 Last Admin: 05/24/17 19:09 Dose: Not Given Ketorolac Tromethamine (Toradol) 30 mg IVPUSH ONETIME ONE Stop: 05/21/17 23:51 Last Admin: 05/22/17 00:11 Dose: 30 mg Ondansetron HCl (Zofran) 4 mg IVPUSH ONETIME ONE Stop: 05/21/17 23:51 Last Admin: 05/22/17 00:11 Dose: 4 mg *Q Meaningful Use (DIS) - VTE *Q VTE Criteria *Q: - Stroke *Q Stroke Criteria *Q: - AMI *Q AMI Criteria *Q:
[2017-05-25 13:34] VITALS: BP 129/77
== END 2017-05-25 12:26 | disposition home or self-care (01) ==
LOC: MW.ED 23:41 → MW.MS 05-22 01:42
PROVIDERS: ADMIT Internal Medicine; ATTEND Internal Medicine
DX: N28.9 Disorder of kidney and ureter, unspecified (principal); R10.9 Unspecified abdominal pain; D72.829 Elevated white blood cell count, unspecified; F17.210 Nicotine dependence, cigarettes, uncomplicated
CPT/HCPCS: 36415; 74176; 80048; 80053; 81001; 83605; 83735; 84100; 85025; 87040; 87086; 96361; 96365; 96366; 96367; 96368; 96375; 96376; 99285; A9270; G0378; J0696; J0744; J1885; J2405; J3475; J7040; 96374; 99282